=== PATIENT | female | born 1955 | race Caucasian/White ===

== ENCOUNTER 2019-06-19 14:14 | Emergency (ER) | payer MEDICARE, OTHER ==
[~2019-06-19] VITALS: Ht 165.1 cm; Wt 60.0 kg
[2019-06-19 14:48] LABS: CALCIUM 8.6 mg/dL (8.5-10.1); CREATININE 1.3 mg/dL (0.6-1.0); GFR 41.1; POTASSIUM 3.8 mmol/L (3.5-5.1)
--- NOTE | 2019-06-19 14:50 | RAD ---
PORTABLE CHEST 1V Clinical indications: CODE BLUE COMPARISON: None available. Findings: ET tube is in place and the tip is situated 4 cm above the level of jane. There is moderate to severe diffuse bilateral pulmonary edema or lung infiltrates. Small right-sided pleural effusion is seen. No pneumothorax is evident. The heart size, pulmonary vasculature, mediastinum and both sameer are unremarkable. There is gaseous distention of the stomach. Impression: Moderate to severe diffuse bilateral pulmonary edema or lung infiltrates. No pneumothorax. Gaseous distention of the stomach. Electronically signed by: Surinder Cr MD (06/19/2019 2:47 PM) [facility] [place]
--- NOTE | 2019-06-19 14:53 | PHYS DOC ---
Adult General Chief Complaint Chief Complaint: RESP ARREST HPI HPI 63-year-old female presents via EMS after return of spontaneous circulation after cardiac arrest. The patient was feeling weak and generally ill today so the called EMS. While he was on the phone with EMS, the patient collapsed. Her started CPR and within 5 minutes. EMS continued once they arrived. They gave her 3 rounds of epinephrine and achieved return of spontaneous circulation. Total working time prior to arrival was around 30 minutes. Patient is a long time smoker and had a fever and cough for the last several days. She is on no daily medications. There are no known cardiac history at this time. No other history is currently available. Review of Systems Review of Systems Unable to perform due to critical condition. Physical Exam Physical Exam Constitutional: Well developed, well nourished, severe distress. [] HENT: Normocephalic, atraumatic, bilateral external ears normal, oropharynx moist, signs of emesis in hair and in mouth [] Eyes: Pupils fixed and dilated, no corneal reflex[] Neck: supple, no stridor. [] Cardiovascular: Heart rate regular rhythm [] Lungs & Thorax: Intubated and using BVM. Bilateral breath sounds coarse[] Abdomen: soft, no obvious masses. [] Skin: cool, dry. [] Back: [No obvious injuries Extremities: No obvious deformities[] Neurologic: Intubated, unresponsive[] Psychologic: Unable to assess[] EKG EKG Sinus rhythm, rate 71, normal axis, no ST elevations or depressions.[] Radiology/Procedures Radiology/Procedures [] Impressions: PORTABLE CHEST 1V Clinical indications: CODE BLUE COMPARISON: None available. Findings: ET tube is in place and the tip is situated 4 cm above the level of jane. There is moderate to severe diffuse bilateral pulmonary edema or lung infiltrates. Small right-sided pleural effusion is seen. No pneumothorax is evident. The heart size, pulmonary vasculature, mediastinum and both sameer are unremarkable. There is gaseous distention of the stomach. Impression: Moderate to severe diffuse bilateral pulmonary edema or lung infiltrates. No pneumothorax. Gaseous distention of the stomach. Electronically signed by: Elton Cr MD (06/19/2019 2:47 PM) [facility] [place] DICTATED AND SIGNED BY: ELTON CR MD DATE: 06/19/19 9206 CC: MCKEON,TERESA DO; PCP,NO ~ Course & Med Decision Making Course & Med Decision Making Pertinent Labs and Imaging studies reviewed. (See chart for details) The patient was given 3 rounds of epinephrine prior to arrival. We continued to have organized rhythm throughout her stay in the emergency room. She was found to have low blood pressure. She was given a liter of normal saline, 2 Amp of bicarbonate, started on a Levophed drip. She is currently on 0.2 mg/kg map in the 70s. Her labs are remarkable for hemoconcentration, but no other significant findings. Chest x-ray shows bilateral pulmonary edema with good placement of the endotracheal tube. Her initial ABG is pH 6.937, CO2 91.4, bicarbonate 19.5. This was prior to Bicarb and only 10 minutes of being on the ventilator. I discussed the patient's condition with her . He stated verbal understanding. He has expressed that the patient does not want to be on artificial life support if there is no hope. That decision does not need to be made at this time. We are unable to transfer the patient to [facility] because they are completely full. We are working on transfer to . do not feel comfortable transferring the patient due to the ABG results. [facility] was able to open up a bed in the ICU. Dr. Pizarro as accepted the patient for transfer. The patient will go by air ambulance due to the fact that she needs complex ventilator management. 53 minutes of critical care time was spent on this patient exclusive of other billable procedures. [] Dragon Disclaimer Dragon Disclaimer This electronic medical record was generated, in whole or in part, using a voice recognition dictation system. Departure Departure: Impression: Primary Impression: Respiratory failure Additional Impressions: Hypoxia Hypercapnia Disposition: XFER SHT-TRM HOSP Condition: CRITICAL Referrals: PCP,NO (PCP) Problem Qualifiers Primary Impression: Respiratory failure Chronicity: acute Respiratory failure complication: hypoxia and hypercapnia Qualified Codes: J96.01 - Acute respiratory failure with hypoxia; J96.02 - Acute respiratory failure with hypercapnia TERESA MCKEON DO Jun 19, 2019 14:53
[2019-06-19 14:54] LABS: ALBUMIN 2.1 g/dL (3.4-5.0); ALBUMIN/GLOBULIN RATIO 0.6 (1.0-1.7); BASO % 1 % (0-3); EOS % 0 % (0-3); HEMATOCRIT 58.6 % (36.0-47.0); HEMOGLOBIN 18.6 g/dL (12.0-15.5); LYMPH # 1.7 x10^3/uL (1.0-4.8); LYMPH % 23 % (24-48); MEAN CORPUSCULAR HEMOGLOBIN 37 pg (25-35); MEAN CORPUSCULAR HGB CONC 32 g/dL (31-37); MEAN CORPUSCULAR VOLUME 116 fL (79-100); MONO # 0.8 x10^3/uL (0.0-1.1); MONO % 11 % (0-9); NEUT % 66 % (31-73); PLATELET COUNT 87 x10^3/uL (140-400); RED BLOOD COUNT 5.03 x10^6/uL (3.50-5.40); RED CELL DISTRIBUTION WIDTH 16.1 % (11.5-14.5); TOTAL BILIRUBIN 0.4 mg/dL (0.2-1.0); TOTAL PROTEIN 5.9 g/dL (6.4-8.2); WHITE BLOOD COUNT 7.6 x10^3/uL (4.0-11.0)
[2019-06-19 15:00] LABS: BGAS PH 6.94 (7.35-7.45)
[2019-06-19] MEDS ORDERED: IV NORMAL SALINE 1,000ML 1,000 ML IV ONE (15:00)
[2019-06-19] MEDS ORDERED: MIDAZOLAM HCL PF 5 MG/5 ML VIAL. IV ONE ×2 (15:00→16:30)
[2019-06-19] MEDS ORDERED: SODIUM BICARB ADULT 8.4% 50 MEQ/50 ML DISP.SYRIN. IV ONE ×2 (15:00)
[2019-06-19] MEDS ORDERED: NOREPINEPHRINE BITARTRATE 8 MG in IV DEXTROSE 5% 250 ML IV PRN (15:00)
[2019-06-19 15:06] VITALS: BP 80/40
[2019-06-19 15:31] LABS: INFLUENZA A PATIENT NEGATIVE (NEGATIVE); INFLUENZA B PATIENT NEGATIVE (NEGATIVE)
[2019-06-19 16:05] LABS: % ATYL 3 % (0-0); % BANDS 4 % (0-9); % LYMPHS 15 % (24-48); % MONOS 14 % (0-10); % SEGS 64 % (35-66)
[2019-06-19 16:06] LABS: PLT ESTIMATE DECREASED (ADEQUATE)
[2019-06-19 16:07] LABS: ANISOCYTOSIS SLIGHT
--- NOTE | 2019-06-19 17:59 | EKG ---
[address] [address] Test Date: 2019-06-19 Test Time: 14:24:04 Pat Name: AI HALL Department: Room: Gender: F Picture Enlarger: : 1955 Requested By: TERESA MCKEON Order Number: [id number] Reading MD: Measurements Intervals [place] Rate: 71 P: 154 KS: 112 QRS: 154 QRSD: 94 T: -26 QT: 478 QTc: 525 Interpretive Statements SUPRAVENTRICULAR RHYTHM LEFT ATRIAL ABNORMALITY ABNORMAL RIGHT AXIS DEVIATION R-S TRANSITION ZONE IN V LEADS DISPLACED TO THE LEFT QRS(T) CONTOUR ABNORMALITY CONSIDER INFERIOR INFARCT ABNORMAL ECG RI6.01 No previous ECG available for comparison
== END 2019-06-19 16:00 | disposition short-term general hospital (02) ==
LOC: ER 14:14
DX: J96.02 Acute respiratory failure with hypercapnia (principal); J96.01 Acute respiratory failure with hypoxia
CPT/HCPCS: 31500; 36415; 51702; 71045; 80053; 82803; 84484; 85007; 85025; 87804; 93005; 96365; 96366; 96374; 96375; 99291; J2250; J3010; 94002; J7030